=== PATIENT | male | born 1960 | race Caucasian/White ===

== ENCOUNTER → 2018-05-11 | Outpatient (CLI) | payer BC ==
--- NOTE | 2018-05-11 14:24 | MR ---
EXAMINATION TYPE: MR shoulder RT wo con DATE OF EXAM: 05/11/2018 COMPARISON: 02/11/2016 HISTORY: 57-year-old male Right shoulder pain TECHNIQUE: Multiplanar, multisequence imaging of the right shoulder is performed without contrast. FINDINGS: Intracapsular portion of the long head biceps tendon not clearly identified, possibly torn and scarre d down in the bicipital groove. Diffuse heterogeneous signal the subscapularis tendon with some partial articular sided tearing throu ghout. Suspect more significant tearing of the inferior third fibrous as the tendon appears very line ar, refer to sagittal image 17. Severe degenerative changes at the AC joint with joint effusion bulky inferior spurring impinging ont o the underlying cuff. There is a focal full-thickness defect of the anterior to mid supraspinatus te ndon proximal to the footprint, located below the level of the acromion measuring 6 x 6 mm. In additi on, there is marked thinning of the entire supraspinatus tendon insertion extending to the anterior f irst and eighth tendon measuring 2.7 cm AP and 2.1 cm long. The remaining infraspinatus tendon is markedly heterogeneous and show some fluid demyelinating along the myotendinous junction probably due to combination of intrasubstance and articular sided tearing. Mild fatty infiltration of the wall of the rotator cuff muscle bellies. There is some superior subluxation of the glenoid humeral joint and evidence of lateral single row pi nning for prior supraspinatus tendon repair. Diffusely degenerative glenoid labrum with small joint effusion. Glenohumeral joint shows thinning of articular cartilage along the inferior humeral head. No Hill-Sachs deformity or os acromiale. No suspicious bone marrow replacement. IMPRESSION: 1. There is some superior subluxation of the humeral head suggesting underlying glenohumeral joint in stability. Underlying mild glenohumeral joint OA. Diffusely degenerated labrum. 2. Evidence of prior supraspinatus tendon repair with a laterally positioned single row suture anchor . The entire supraspinatus tendon is severely thinned and probably torn and scarred down. This abnorm al thinning extends into the anterior infraspinatus tendon. 3. There is a 6 x 6 mm full-thickness defect of the mid supraspinatus tendon located proximal to the insertion (below the level of the acromion). 4. Fluid delaminating along the infraspinatus myotendinous junction suggesting partial articular side d tear of the infraspinatus tendon. 5. Partial tearing of the subscapularis tendon, especially involving the inferior third fibers. The m ajority appears intact. 6. There is mild fatty infiltration diffusely of the rotator cuff muscles. 7. Severe degenerative changes at the AC joint with prominent inferior spurring likely contributing t o impingement. 8. Unable to identify the intracapsular portion of the long head biceps tendon which may be torn and scarred down in the bicipital groove.
== END | disposition home or self-care (01) ==
LOC: RADMRIMAIN 07:07
PROVIDERS: ATTEND Orthopaedic Surgery
DX: S46.911A Strain of unspecified muscle, fascia and tendon at shoulder and upper arm level, right arm, initial encounter (principal); M19.011 Primary osteoarthritis, right shoulder; M67.813 Other specified disorders of tendon, right shoulder

== ENCOUNTER 2018-08-22 11:36 | Day surgery (SDC) | payer BC ==
[2018-08-17 12:43] VITALS: BMI 44.9
[~2018-08-22 11:36] MED LIST: LACTATED RINGERS 1,000 ML IV SCH
[2018-08-22 12:10] VITALS: RESP 16; TEMP 96.3
[2018-08-22] MEDS ORDERED: LIDOCAINE 1% 20 ML VIAL (10MG/ML) FOR IV START INTRADERMA ONE (12:16)
[2018-08-22] MEDS ORDERED: LIDOCAINE 1% INJ 10MG/ML (20 ML MDV) ONE (13:00)
[2018-08-22] MEDS ORDERED: PROPOFOL 10 MG/ML 20 ML VIAL IV ONE (13:00)
--- NOTE | 2018-08-22 13:31 | P.PCN ---
Date of Procedure: 08/22/18 Procedure(s) Performed: Procedure: Total colonoscopy. Preoperative diagnosis: Screening for neoplasia, patient has history of polyps. Postoperative diagnosis: Exam within normal limits. Preparation: HalfLytely prep. Sedation: Was provided by anesthesia. Brief clinical history: The patient is a 58-year-old male who is scheduled for this evaluation because of history of polyps. His last exam was around 5 years ago. The patient has no abdominal complaints, bleeding or anemia. Procedure: With the patient on his left lateral decubitus position and after informed consent and adequate sedation, the perianal area was inspected and it did not show any fissures or fistulas. There were no masses felt on digital rectal examination. The Olympus CFH 190L video colonoscope was then inserted in the rectum in the usual fashion and advanced to the cecum. The mucosa appeared healthy. No polyps or tumors were seen or any obvious diverticular disease or other pathology. I retroflexed the endoscope in the rectum before the endoscope was withdrawn. The patient tolerated the procedure well. Plan: The patient was reassured. He will follow up with you as planned and I recommended repeat exam in 5 years.
[2018-08-22 13:52] VITALS: BP 138/84; PULSE 50
== END 2018-08-22 14:02 | disposition home or self-care (01) ==
LOC: ORWHC2ENDO 11:36
DX: Z12.11 Encounter for screening for malignant neoplasm of colon (principal); Z86.010 Personal history of colon polyps; K21.9 Gastro-esophageal reflux disease without esophagitis; I10 Essential (primary) hypertension; E78.5 Hyperlipidemia, unspecified; G47.33 Obstructive sleep apnea (adult) (pediatric); M19.90 Unspecified osteoarthritis, unspecified site; Z88.1 Allergy status to other antibiotic agents; Z88.2 Allergy status to sulfonamides; F32.9 Major depressive disorder, single episode, unspecified; Z79.899 Other long term (current) drug therapy; Z79.82 Long term (current) use of aspirin
CPT/HCPCS: J2001; J2704; G0105; 45378

== ENCOUNTER → 2019-04-15 | Outpatient (CLI) | payer BC ==
--- NOTE | 2019-04-16 04:56 | MR ---
EXAMINATION TYPE: MR hip LT wo con DATE OF EXAM: 04/15/2019 COMPARISON: None HISTORY: Left hip pain Multiplanar multiecho imaging of the pelvis and left hip was performed without contrast. FINDINGS: There is metal artifact from right hip surgery. The proximal left femur appears intact. There is no e vidence of avascular necrosis. Acetabulum is intact. There is no significant hip joint effusion. Ther e is no evidence of a soft tissue mass. Bladder distends smoothly. I see no focal bone destruction. IMPRESSION: Negative MR scan of the left hip joint.
== END | disposition home or self-care (01) ==
LOC: RADMRIMAIN 12:54
PROVIDERS: ATTEND Family Medicine
DX: M25.552 Pain in left hip (principal)

== ENCOUNTER → 2019-10-26 | Outpatient (CLI) | payer BC ==
--- NOTE | 2019-10-26 09:56 | XR ---
EXAMINATION TYPE: XR orbit detect foreign body DATE OF EXAM: 10/26/2019 COMPARISON: NONE HISTORY: Possible foreign body TECHNIQUE: 3 views submitted FINDINGS: Osseous structures intact. No metallic foreign body identified. IMPRESSION: No metallic foreign body
== END | disposition home or self-care (01) ==
LOC: RADXRMAIN 09:06
PROVIDERS: ATTEND Nurse Practitioner
DX: Z01.818 Encounter for other preprocedural examination (principal); Z87.821 Personal history of retained foreign body fully removed
CPT/HCPCS: 70030

== ENCOUNTER → 2021-04-14 | Outpatient (CLI) | payer BC ==
--- NOTE | 2021-04-14 10:08 | CT ---
EXAMINATION TYPE: CT iac w con DATE OF EXAM: 04/14/2021 COMPARISON: None HISTORY: tinnitus CT DLP: 142.7 mGycm Automated exposure control for dose reduction was used. CONTRAST: CT scan of the IACs is performed with IV Contrast, patient injected with 100 mL of Isovue 300. FINDINGS: The external auditory canals are patent bilaterally. Wax debris is seen within the external auditory canals right greater than left. Mastoid air cells show no evidence of abnormal opacificati on bilaterally. The middle ear ossicles are symmetric and unremarkable. There is no evidence of yodit picious surrounding soft tissue density to suggest cholesteatoma. The scutum is preserved bilaterall y. The cochlea and the semicircular canals are symmetric and unremarkable. Vestibular aqueduct and internal carotid canal appear unremarkable. Temporomandibular joints are maintained bilaterally. IMPRESSION: No significant abnormality seen to account for patient's symptoms.
== END | disposition home or self-care (01) ==
LOC: RADCTMAIN 08:55
PROVIDERS: ATTEND Otolaryngology
DX: H93.19 Tinnitus, unspecified ear (principal)
CPT/HCPCS: 70481; Q9967

== ENCOUNTER → 2023-01-07 | Outpatient (CLI) | payer BC ==
--- NOTE | 2023-01-07 14:52 | US ---
EXAMINATION TYPE: US venous doppler duplex LE RT DATE OF EXAM: 01/07/2023 2:15 PM COMPARISON: NONE CLINICAL INDICATION: Male, 62 years old with history of R60.0 EDEMA M85.561 PAIN IN RIGHT KNEE; Patie nt hurt right knee on Wednesday. Swelling. Patient takes baby aspirin daily. No hx of DVT. SIDE PERFORMED: Right TECHNIQUE: The lower extremity deep venous system is examined utilizing real time linear array sonog pascual with graded compression, doppler sonography and color-flow sonography. VESSELS IMAGED: Common Femoral Vein Deep Femoral Vein Greater Saphenous Vein * Femoral Vein Popliteal Vein Small Saphenous Vein * Proximal Calf Veins (* superficial vessels) Right Leg: No evidence of DVT. Cyst within the posterior right knee: 4.7 x 3.5 x 2.1 cm. IMPRESSION: 1. No evidence for deep venous thrombosis of the right lower extremity. 2. Popliteal fossa 4.7 cm cyst.
== END | disposition home or self-care (01) ==
LOC: RADUSWWP 13:38
PROVIDERS: ATTEND Family Medicine
DX: M71.21 Synovial cyst of popliteal space [Baker], right knee (principal); R60.0 Localized edema

== ENCOUNTER → 2023-02-02 | Outpatient (CLI) | payer BC ==
--- NOTE | 2023-02-05 06:26 | MR ---
EXAMINATION TYPE: MR knee RT wo con DATE OF EXAM: 02/02/2023 COMPARISON: NONE HISTORY: Right knee pain, pain behind knee, locking, and swelling for 6 weeks. TECHNIQUE: Multiplanar, multisequence images of the knee is performed without IV contrast. FINDINGS: MEDIAL MENISCUS: Irregular oblique signal posterior horn extending to inferior articular surface. LATERAL MENISCUS: Anterior and posterior horns are intact without tear. CRUCIATE LIGAMENTS: The anterior and posterior cruciate ligaments are intact and unremarkable. COLLATERAL LIGAMENTS: The medial collateral ligament and lateral collateral ligament complex are inta ct and unremarkable. EXTENSOR MECHANISM: Visualized quadriceps and patellar tendons are intact. EFFUSION: Small to moderate size suprapatellar joint effusion. POPLITEAL CYST: Large multiseptated popliteal/cotton cyst. TRICOMPARTMENT SPACES: Tricompartment joint space loss which is most prominent and [id number] patellofemoral compartment. Mild to moderate tricompartment joint space narrowing. CARTILAGE: Chondromalacia patella with areas of full-thickness cartilaginous loss along the posterior patellar pole. BONE MARROW SIGNAL: No focal abnormal marrow signal is appreciated. OTHER: Mild to moderate diffuse subcutaneous edema greatest anteriorly. IMPRESSION: 1. Oblique full-thickness tear posterior horn medial meniscus. 2. Tricompartment degenerative changes that are most prominent and moderate to advanced patellofemora l compartment as detailed above. 3. Small to moderate-sized joint effusion. 4. Large multiseptated popliteal cyst.
== END | disposition home or self-care (01) ==
LOC: RADMRIMAIN 19:40
PROVIDERS: ATTEND Family Medicine
DX: M17.11 Unilateral primary osteoarthritis, right knee (principal); M23.321 Other meniscus derangements, posterior horn of medial meniscus, right knee; M25.461 Effusion, right knee; M71.21 Synovial cyst of popliteal space [Baker], right knee

== ENCOUNTER 2023-08-10 08:40 | Day surgery (SDC) | payer BC ==
[~2023-08-10 08:40] MED LIST changes: -LACTATED RINGERS 1,000 ML IV SCH; +SODIUM CHLORIDE 0.9% 1,000 ML IV SCH
[2023-08-10] MEDS ORDERED: BENZOCAINE SPRAY 1 CAN TOPICAL STA (09:00)
[2023-08-10 09:18] VITALS: TEMP 97
[2023-08-10] MEDS: SODIUM CHLORIDE 0.9% 500 ML BAG IV STA (09:28)
[2023-08-10] MEDS: IV FLUID CONTINUATION 500 ML IV ONE (09:28)
[2023-08-10 09:36] LABS: African American GFR (CKD) >90 (>60 ml/min/1.73 sqM); Anion Gap 4 mmol/L; Blood Urea Nitrogen 20 mg/dL (9-20); Calcium 8.9 mg/dL (8.4-10.2); Carbon Dioxide 31 mmol/L (22-30); Chloride 102 mmol/L (98-107); Glucose 86 mg/dL (74-99); Non-African American GFR(CKD) >90 (>60 ml/min/1.73 sqM); Sodium 137 mmol/L (137-145)
[2023-08-10 09:55] LABS: Potassium 4.7 mmol/L (3.5-5.1)
[2023-08-10] MEDS ORDERED: LIDOCAINE 1% INJ 10MG/ML (20 ML MDV) ONE (10:00)
[2023-08-10] MEDS ORDERED: PROPOFOL 10 MG/ML 20 ML VIAL IV ONE (10:00)
[2023-08-10] MEDS: BENZOCAINE SPRAY 1 CAN TOPICAL ONE (10:06)
[2023-08-10] MEDS ORDERED: SODIUM CHLORIDE 0.9% 1,000 ML IV SCH (10:30)
--- NOTE | 2023-08-10 11:10 | ECHOT ---
TRANSESOPHAGEAL ECHOCARDIOGRAM INDICATION: Symptomatic persistent atrial fibrillation. PROCEDURE NOTE: After obtaining informed consent, transesophageal echocardiogram was performed in left lateral position using an Omniplane probe. Local and IV sedation were obtained by the program instructor. FINDINGS: 1. There is no intracardiac thrombus within the left atrial appendage, left atrium, right atrium, or right ventricle. 2. There is severe biatrial enlargement. 3. There is moderate central mitral regurgitation noted. 4. There is mild tricuspid regurgitation noted. Aortic valve is free of stenosis or regurgitation. 5. Aortic root measures within normal limits. 6. There is no evidence of rhyr-ni-wgotl shunt by color-flow Doppler or zlbbv-vw-ijvi shunt by agitated saline contrast study. There is diffuse global hypokinesis with mild LV systolic dysfunction with an ejection fraction 45% to 50%. Spontaneous echo contrast is noted. CONCLUSIONS: No intracardiac thrombus within the left atrial appendage. PLAN: The patient is adequately anticoagulated with Eliquis. We will proceed with cardioversion. MMODL / IJN: [id number] /
--- NOTE | 2023-08-10 11:40 | PCN ---
PROCEDURE NOTE CARDIOVERSION NOTE: After obtaining informed consent, electrical cardioversion was performed using 150 joules of synchronized DC current. He converted to sinus rhythm following a single shock and remains in sinus rhythm. I am going to cut back on the dose of metoprolol to 25 mg b.i.d. and discharge and cut back on the flecainide to 100 mg b.i.d. and that JOSELIN exam stated that there is a small pericardial effusion noted. MMODL / IJN: [id number] /
[2023-08-10 11:59] VITALS: BP 121/73; PULSE 56; RESP 16
== END 2023-08-10 11:06 | disposition home or self-care (01) ==
LOC: OR 08:40
PROVIDERS: ATTEND Internal Medicine Cardiovascular Disease
DX: I48.19 Other persistent atrial fibrillation (principal); Z79.01 Long term (current) use of anticoagulants; Z79.899 Other long term (current) drug therapy
CPT/HCPCS: 93312; 93320; 93325; 92960; 80048; J2001; J2704

== ENCOUNTER 2023-09-17 12:17 | Inpatient (IN) | payer BC ==
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
[2023-09-17] MEDS: LORazepam 2 MG/ML INJ IV STA ×2 (13:06→20:36)
[2023-09-17 13:12] LABS: Basophils % (A) 1 %; Eosinophils # (A) 0.1 k/uL (0-0.7); Eosinophils % (A) 2 %; HCT 46.7 % (39.0-53.0); HGB 15.1 gm/dL (13.0-17.5); Lymphocytes # (A) 1.6 k/uL (1.0-4.8); Lymphocytes % (A) 24 %; MCH 31.9 pg (25.0-35.0); MCHC 32.4 g/dL (31.0-37.0); MCV 98.5 fL (80.0-100.0); Monocytes # (A) 0.3 k/uL (0-1.0); Monocytes % (A) 5 %; Neutrophils # (A) 4.3 k/uL (1.3-7.7); Neutrophils % (A) 67 %; Platelet Count 200 k/uL (150-450); RBC 4.74 m/uL (4.30-5.90); RDW 12.5 % (11.5-15.5); WBC 6.5 k/uL (3.8-10.6)
[2023-09-17 13:24] LABS: ALT 17 U/L (4-49); AST 26 U/L (17-59); African American GFR (CKD) >90 (>60 ml/min/1.73 sqM); Albumin 4.6 g/dL (3.5-5.0); Alkaline Phosphatase 59 U/L (38-126); Anion Gap 6 mmol/L; Blood Urea Nitrogen 15 mg/dL (9-20); Calcium 9.3 mg/dL (8.4-10.2); Carbon Dioxide 30 mmol/L (22-30); Chloride 102 mmol/L (98-107); Creatine Kinase 42 U/L (55-170); Glucose 107 mg/dL (74-99); Non-African American GFR(CKD) >90 (>60 ml/min/1.73 sqM); Potassium 4.4 mmol/L (3.5-5.1); Sodium 138 mmol/L (137-145); Total Bilirubin 0.6 mg/dL (0.2-1.3); Total Protein 6.9 g/dL (6.3-8.2)
[2023-09-17 13:28] LABS: Partial Thromboplastin Time 26.6 sec (22.0-30.0); Prothrombin Time 10.6 sec (10.0-12.5)
--- NOTE | 2023-09-17 14:38 | CT ---
EXAMINATION TYPE: CT angio head neck DATE OF EXAM: 09/17/2023 HISTORY: pt sent by eye dr for poss stroke behind left eye. COMPARISON: FINDINGS: The brachiocephalic origins are widely patent and no significant stenosis. There is no significant stenosis of the common or internal carotid arteries within the neck. There is minimal calcified plaque in the carotid bifurcations. There is no stenosis of the vertebral arteries . Intracranially, there is no stenosis, segmental occlusion, sizable aneurysm sac or vascular malformat ion. IMPRESSION:. 1. Minimal plaque in the carotid bifurcations but no significant stenosis. 2. No evidence of occlusive disease, aneurysms or vascular malformation intracranially. NASCET criteria was used in interpretation of this exam?
--- NOTE | 2023-09-17 14:40 | CT ---
EXAMINATION TYPE: CT brain wo con DATE OF EXAM: 09/17/2023 COMPARISON: None HISTORY: Possible CVA Findings: The ventricles, basal cisterns and sulci over the convexities are within normal limits and there is n o mass effect or shift of midline structures. There is mild decreased density in periventricular white matter consistent with mild chronic ischemic white matter demyelination. There is no acute intra-axial or extra-axial hemorrhage. The posterior fossa including the brainstem, fourth ventricle and cerebellar pontine angles appear no rmal. Intraorbital contents appear normal and symmetric. Visualized paranasal sinuses and mastoid air cells are well aerated. The calvarium is intact. IMPRESSION: 1. No acute bleed or mass effect. 2. Mild senescent changes
[2023-09-17] MEDS: ASPIRIN 325 MG TAB PO STA (16:49)
[2023-09-17 18:33] LABS: Erythrocyte Sedimentation Rate 24 mm/Hr (0-20)
--- NOTE | 2023-09-17 19:28 | P.CNNES ---
History of Present Illness Consult date: 09/17/23 Requesting physician: Luc Monroy Reason for Consult: Branch retinal artery occlusion History of Present Illness: Patient is a 63-year-old right-handed male with history of hypertension, atrial fibrillation, came to the hospital today at 12:17 PM, referred by information resources manager for stroke workup. Patient states that he developed visual disturbance last 09/13/2019 4 in the morning while he was at work. He started seeing floaters, squiggly lines, spots around his whole visual field. He did not seek medical attention at that time. There were no other associated focal symptoms like slurred speech facial droop or any numbness tingling or weakness. Patient states that he does have history of chronic headaches "all his life" as mentioned below in detail. The headache has been getting worse in the last couple weeks. He saw the housekeeping lead yesterday, who recommended to see an information resources manager. 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 Patient has history of chronic daily headaches all his life. Patient states he remembers having headaches even when he was a child. It involves behind the eyes or on the temples, 1 or other side or sometimes back of the head. At times it may go up to 10/10. The headache is throbbing, with aching with no headache free day in the month. The headaches rates between 4-10, and it goes up to 10/10 about 3-4 times a week. He gets nausea sometimes but no vomiting. Denies any light or noise sensitivity. He has never been diagnosed with migraines. Denies family history of migraines. He denies excessive use of caffeine, only about 1 or 2 cups/day. He did switch to decaffeinated drinks, for quite some time, but did not help. Vital signs on arrival blood pressure 200/112, which came down to 193/129 and then 193/129 again. Pulse rate 78 temperature 97.3. Blood test shows normal CBC PTT and INR, normal CMP. CK is 42. EKG showed uncertain regular rhythm. Left axis deviation. CT head showed no acute bleed or mass effect. Mild senescent changes. I personally reviewed CT head, agree with the findings. Patient has history of hypertension, denies diabetes. He has never smoked, does not drink alcohol. Denies any history of strokes or TIA or any coronary artery disease. Patient has been diagnosed with atrial fibrillation. He used to be on aspirin 81 mg, but 3 months ago he was switched to Eliquis 5 mg twice daily. Patient was on metoprolol, and he was having breathing difficulty. 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 Lately his blood pressure has been running high. As per notes from ophthalmology, patient has "blotchy vision" constantly. Floaters are getting worse. Patient's visual acuity is 20/20 right eye, 20/200 left eye. Patient has branch retinal artery occlusion left eye with hypertensive retinopathy OS. He recommended blood pressure and cholesterol control. Patient also has retinal defect, old retinal tear both eyes. Stable. Review of Systems Constitutional: Reports chronic headaches, Reports weight gain, Denies chills, Denies fever Eyes: left blurred vision, left loss of peripheral vision, denies diplopia Ears: deny: decreased hearing, ear discharge Ears, nose, mouth and throat: Reports headache (4-5), Denies sore throat, Denies vertigo Cardiovascular: Denies chest pain, Denies shortness of breath Respiratory: Reports cough (in am ), Denies excessive sputum Gastrointestinal: Denies abdominal pain, Denies diarrhea, Denies nausea, Denies vomiting Genitourinary: Denies dysuria, Denies incontinence Musculoskeletal: Reports neck pain, Denies low back pain Integumentary: Denies pruritus, Denies rash Neurological: Reports as per HPI Psychiatric: Reports anxiety, Reports depression Endocrine: Reports fatigue, Reports weight change Hematologic/Lymphatic: Denies easy bleeding, Denies easy bruising Past Medical History Past Medical History: Atrial Fibrillation, GERD/Reflux, Hyperlipidemia, Hypertension, Osteoarthritis (OA), Prostate Disorder, Sleep Apnea/CPAP/BIPAP Additional Past Medical History / Comment(s): CHRONIC PALPITATIONS (PATIENT HAS BEEN TO SEVERAL CARDIOLOGISTS TO GET ANSWERS, OCC PVCs ONLY. USES CPAP. History of Any Multi-Drug Resistant Organisms: None Reported Past Surgical History: Joint Replacement, Orthopedic Surgery Additional Past Surgical History / Comment(s): ORIF RIGHT CLAVICLE. RIGHT HIP /REMOVAL OF BONE FRAGMENTS. RIGHT TOTAL HIP. LASIK SHUBHAM. SINUS. RIGHT THUMB REATTACHED FROM ACCIDENT. LEFT/RT SHOULDER REPAIR. COLONOSCOPY rt elbow shattered after accident repaired Past Anesthesia/Blood Transfusion Reactions: Postoperative Nausea & Vomiting (PONV) Additional Past Anesthesia/Blood Transfusion Reaction / Comment(s): hx of n/v no issues lately Past Psychological History: Anxiety, Depression Smoking Status: Never smoker Past Alcohol Use History: None Reported Past Drug Use History: None Reported - Past Family History Mother Family Medical History: Deep Vein Thrombosis (DVT) Medications and Allergies Home Medications Medication Instructions Recorded Confirmed Type Omeprazole 20 mg PO DAILY 02/27/16 09/17/23 History Apixaban [Eliquis] 5 mg PO BID 07/21/23 09/17/23 History Buprenorphine [Buprenorphine 20 1 patch TRANSDERM TU 07/21/23 09/17/23 History MCG/HR] Cyclobenzaprine [Flexeril] 10 mg PO HS 07/21/23 09/17/23 History DULoxetine HCL [Cymbalta] 30 mg PO DAILY 07/21/23 09/17/23 History Dutasteride 0.5 mg PO DAILY 07/21/23 09/17/23 History HYDROcodone/APAP 7.5-325MG [Gower 1 tab PO TID PRN 07/21/23 09/17/23 History 7.5-325] Rosuvastatin [Crestor] 20 mg PO HS 07/21/23 09/17/23 History Flecainide Acetate [Tambocor] 100 mg PO Q12H 09/17/23 09/17/23 History Flecainide [Tambocor] 50 mg PO Q12H 09/17/23 09/17/23 History Testosterone [Androgel 1.62%] 3 pump TRANSDERM DAILY 09/17/23 09/17/23 History Allergies Allergy/AdvReac Type Severity Reaction Status Date / Time cephalexin [From Keflex] Allergy Rash/Hives Verified 09/17/23 14:23 clarithromycin [From Biaxin] Allergy Rash/Hives Verified 09/17/23 14:23 Physical Examination - Vital Signs Vital Signs: Vital Signs Temp Pulse Resp BP Pulse Ox 09/17/23 16:30 66 16 154/90 92 L 09/17/23 16:15 66 9 L 158/110 92 L 09/17/23 16:00 68 12 158/94 98 09/17/23 15:45 69 12 163/106 98 09/17/23 15:30 67 14 158/102 98 09/17/23 15:15 69 16 164/101 97 09/17/23 15:00 70 11 L 145/83 98 09/17/23 14:45 72 14 142/83 09/17/23 14:30 69 13 148/87 97 09/17/23 14:15 73 16 159/99 91 L 09/17/23 14:00 70 15 158/101 96 09/17/23 13:45 73 18 148/92 96 09/17/23 13:30 76 12 159/99 99 09/17/23 13:15 76 12 185/107 98 09/17/23 13:00 75 22 193/129 99 09/17/23 12:35 78 20 193/129 97 09/17/23 12:19 97.3 F L 78 20 200/112 98 Intake and Output 09/17/23 09/17/23 09/17/23 06:59 14:59 22:59 Other: Weight 136.078 kg Patient is an elderly male, very pleasant, in no acute distress. Patient is alert awake oriented to time place and person. Speech and language functions are normal. Patient can name and repeat very well. No aphasia or dysarthria. Attention, concentration and fund of knowledge is adequate. On cranial nerve examination, pupils are equal, round and reacting to light, visual doran are full on confrontation, with no neglect on double simultaneous stimulation. I check detailed visual doran on confrontation on each eye, and was normal. His extraocular muscles are intact with no nystagmus. Face is symmetric, tongue protrudes to the midline. Palatal elevation and sensation normal, hearing and shoulder shrug normal, facial sensation normal. On muscle strength testing, there is no pronator drift and the strength is normal in arms and legs distally and proximally, except right hip flexion which is slightly weak 5-related to his previous hip replacement. Deep tendon reflexes are symmetric hypoactive, trace to 1 and plantars are flat. Sensory to touch is equal with no neglect on double simultaneous stimulation. Cerebellar function showed no ataxia for [id number] testing. No dysdiadochokinesia. No ataxia for [id number] testing on either side. Tone and bulk of muscles normal. Gait deferred.. On general examination, there is no carotid bruit or murmur, S1-S2 audible. Chest is clear on consultation. Abdomen is soft nontender. No organomegaly, bowel sounds present. Peripheral pulses are present. No peripheral edema. Results - Laboratory Findings CBC and BMP: 09/17/23 12:51 09/17/23 12:51 Abnormal Lab Findings: Abnormal Labs 09/17/23 12:51 Glucose 107 H Creatine Kinase 42 L Assessment and Plan Assessment: * Branch retinal artery occlusion involving left eye * Uncontrolled hypertension * Atrial fibrillation, on Eliquis * Chronic daily headaches, lifelong * Hyperlipidemia * History of B12 deficiency, not on replacement Plan: * Patient has presented with branch retinal artery occlusion. * Director Of Market Research has recommended stroke/TIA workup. * 2-D echo with bubble study to rule out PFO. Patient states he had 2D echo performed 1 to 2 months ago at his cardiology office. 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 * CTA head and neck showed: Minimal plaque in the carotid bifurcations, but no significant stenosis. No evidence of occlusive disease, aneurysms or vascular malformation intracranially. * ESR slightly elevated at 24, CRP pending. Consider temporal artery biopsy because of worsening headaches, especially if CRP is elevated. * Fasting a.m. lipid panel * Hemoglobin A1c * B12, folate * Optimize control of blood pressure. Patient has been off blood pressure medication for last 2 to 3 weeks. * Continue Eliquis 5 mg twice daily. Patient started on aspirin 325 mg for now. Consider switching to aspirin 81 mg. * Neuro checks every 4 hours. * Telemetry monitoring rule out any arrhythmia * DVT prophylaxis: On Eliquis * Dr. Rios will cover neurology service over the weekend. Thank you for the consult.
[2023-09-17 19:48] LABS: C Reactive Protein <0.5 mg/dL (<1.0)
[2023-09-17] MEDS: FLECAINIDE 50 MG TAB PO SCH (20:34)
[2023-09-17] MEDS: APIXABAN 5 MG TAB PO SCH (20:34)
[2023-09-17] MEDS: ATORVASTATIN 40 MG TAB PO SCH (20:35)
[2023-09-17] MEDS ORDERED: FLECAINIDE 50 MG TAB PO SCH ×2 (21:00)
--- NOTE | 2023-09-17 22:44 | P.HPIM ---
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 Patient states that he had change in vision about 6 days ago. States that he is seeing floaters, lights and spots around his whole visual field. Patient was seen by neurosurgeon followed by [employer] and was sent to ER for further stroke evaluation. Patient does have history of atrial fibrillation on anticoagulation with Eliquis. Apparently his blood pressure has been running high for the past 1 week. Patient otherwise denies any complaints of slurred speech or facial droop. Denies any extremity weakness. Patient was seen by [employer] and diagnosed with retinal branch arterial occlusion. EKG on admission showed uncertain regular rhythm. Left axis deviation. CT angio of the head and neck minimal plaque in the carotid bifurcations but no significant stenosis. No evidence of occlusive disease, aneurysms are vascular malformation intracranially. CT head showed no acute bleed or mass effect. MildSenescent changes. Laboratory data showed WBC 6.5 hemoglobin 15.1 and platelets 200 Sodium 138 potassium 4.4 chloride 102 bicarb is 30 BUN 15 and creatinine 0.73 and blood glucose 107 CK 42 Lodine SR not elevated CRP less than 0.5 B12 and folate within normal limits. Review of Systems Constitutional: Patient denies any fever or chills . No generalized weakness or weight loss. Abdomen: Patient denied nausea vomiting and diarrhea and abdominal pain. Cardiovascular: Patient denies any chest pain or short of breath no palpitations. Respiratory: patient denied any cough or sputum production. No shortness of breath Neurologic: Patient denied any numbness or tingling. Chronic headache. Left eye floaters and visual changes. Musculoskeletal: Patient denies any complaints of joint swelling or deformity. Skin: Negative Psychiatric: Negative Endocrine: No heat or cold intolerance. No recent weight gain. Genitourinary: No dysuria or hematuria. All other 14 point ROS negative except the above Past Medical History Past Medical History: Atrial Fibrillation, GERD/Reflux, Hyperlipidemia, Hypertension, Osteoarthritis (OA), Prostate Disorder, Sleep Apnea/CPAP/BIPAP Additional Past Medical History / Comment(s): CHRONIC PALPITATIONS (PATIENT HAS BEEN TO SEVERAL CARDIOLOGISTS TO GET ANSWERS, OCC PVCs ONLY. USES CPAP. History of Any Multi-Drug Resistant Organisms: None Reported Past Surgical History: Joint Replacement, Orthopedic Surgery Additional Past Surgical History / Comment(s): ORIF RIGHT CLAVICLE. RIGHT HIP/REMOVAL OF BONE FRAGMENTS. RIGHT TOTAL HIP. LASIK SHUBHAM. SINUS. RIGHT THUMB REATTACHED FROM ACCIDENT. LEFT/RT SHOULDER REPAIR. COLONOSCOPY rt elbow shattered after accident repaired Past Anesthesia/Blood Transfusion Reactions: Postoperative Nausea & Vomiting (PONV) Additional Past Anesthesia/Blood Transfusion Reaction / Comment(s): hx of n/v no issues lately Past Psychological History: Anxiety, Depression Smoking Status: Never smoker Past Alcohol Use History: None Reported Past Drug Use History: None Reported - Past Family History Mother Family Medical History: Deep Vein Thrombosis (DVT) Medications and Allergies Home Medications Medication Instructions Recorded Confirmed Type Omeprazole 20 mg PO DAILY 02/27/16 09/17/23 History Apixaban [Eliquis] 5 mg PO BID 07/21/23 09/17/23 History Buprenorphine [Buprenorphine 20 1 patch TRANSDERM TU 07/21/23 09/17/23 History MCG/HR] Cyclobenzaprine [Flexeril] 10 mg PO HS 07/21/23 09/17/23 History DULoxetine HCL [Cymbalta] 30 mg PO DAILY 07/21/23 09/17/23 History Dutasteride 0.5 mg PO DAILY 07/21/23 09/17/23 History HYDROcodone/APAP 7.5-325MG [Mikana 1 tab PO TID PRN 07/21/23 09/17/23 History 7.5-325] Rosuvastatin [Crestor] 20 mg PO HS 07/21/23 09/17/23 History Flecainide Acetate [Tambocor] 100 mg PO Q12H 09/17/23 09/17/23 History Flecainide [Tambocor] 50 mg PO Q12H 09/17/23 09/17/23 History Testosterone [Androgel 1.62%] 3 pump TRANSDERM DAILY 09/17/23 09/17/23 History Allergies Allergy/AdvReac Type Severity Reaction Status Date / Time cephalexin [From Keflex] Allergy Rash/Hives Verified 09/17/23 14:23 clarithromycin [From Biaxin] Allergy Rash/Hives Verified 09/17/23 14:23 Physical Exam Vitals: Vital Signs Temp Pulse Resp BP Pulse Ox 09/17/23 22:00 63 18 153/105 95 09/17/23 21:00 68 16 150/90 95 09/17/23 19:43 63 16 142/97 97 09/17/23 18:15 66 12 144/87 98 09/17/23 18:00 65 16 156/92 97 09/17/23 17:45 65 13 155/92 97 09/17/23 17:30 67 14 177/111 90 L 09/17/23 17:15 67 13 162/97 96 09/17/23 17:00 68 14 156/92 95 09/17/23 16:45 75 18 155/89 09/17/23 16:30 66 16 154/90 92 L 09/17/23 16:15 66 9 L 158/110 92 L 09/17/23 16:00 68 12 158/94 98 09/17/23 15:45 69 12 163/106 98 09/17/23 15:30 67 14 158/102 98 09/17/23 15:15 69 16 164/101 97 09/17/23 15:00 70 11 L 145/83 98 09/17/23 14:45 72 14 142/83 09/17/23 14:30 69 13 148/87 97 09/17/23 14:15 73 16 159/99 91 L 09/17/23 14:00 70 15 158/101 96 09/17/23 13:45 73 18 148/92 96 09/17/23 13:30 76 12 159/99 99 09/17/23 13:15 76 12 185/107 98 09/17/23 13:00 75 22 193/129 99 09/17/23 12:35 78 20 193/129 97 09/17/23 12:19 97.3 F L 78 20 200/112 98 Intake and Output 09/17/23 09/17/23 09/17/23 06:59 14:59 22:59 Other: Weight 136.078 kg PHYSICAL EXAMINATION: Patient is lying in the bed comfortably, no acute distress, awake alert and oriented.. HEENT: Normocephalic. Neck is supple. Pupils reactive. Nostrils clear. Oral cavity is moist. Neck reveals no JVD, carotid bruits, or thyromegaly. CHEST EXAMINATION: Trachea is central. Symmetrical expansion. Lung doran clear to auscultation and percussion. CARDIAC: Normal S1, S2 with no gallops. No murmurs ABDOMEN: Soft. Bowel sounds normal. No organomegaly. No abdominal bruits. Extremities: reveal no edema. No clubbing or cyanosis Neurologically awake, alert, oriented x3 with well-coordinated movements. No gross focal deficits noted Skin: No rash or skin lesions. Psychiatric: Coperative. Nonsuicidal Musculoskeletal: No joint swelling or deformity. Normal range of motion. Results CBC & Chem 7: 09/17/23 12:51 09/18/23 06:44 Labs: Abnormal Lab Results - Last 24 Hours (Table) 09/17/23 09/17/23 Range/Units 12:51 12:51 ESR 24 H (0-20) mm/Hr Glucose 107 H (74-99) mg/dL Creatine Kinase 42 L (55-170) U/L Thrombosis Risk Factor Assmnt - DVT/VTE Prophylaxis DVT/VTE Prophylaxis: Pharmacologic Prophylaxis ordered Assessment and Plan Assessment: Acute left eye vision changes due to retinal artery branch occlusion. Patient has been symptoms for the past 6 days. Hypertensive emergency on admission Paroxysmal atrial fibrillation on anticoagulation with Eliquis History of JOSELIN and cardioversion on 08/10/2023 Hypertension Hyperlipidemia Obstructive sleep apnea on CPAP Osteoarthritis Anxiety/depression Morbid obesity BMI 41.7 DVT prophylax with heparin subcu Plan: Patient will be continued on telemonitoring. Continue with neurochecks every 4 hourly. Continue with anticoagulation with Eliquis and 2D echocardiogram with bubble study was ordered. Patient will be continued on flecainide. Currently not on any beta-blockers due to bradycardia as per patient. Patient was started on losartan 25 mg daily for better blood pressure control. ESR 24. CRP within normal limits. Follow-up A1c B12 and folate levels. Neurology and cardiology is on board. Follow-up closely. Time with Patient: Greater than 30
[2023-09-18] MEDS: PANTOPRAZOLE 40 MG TABLET PO SCH (06:33)
[2023-09-18 07:15] LABS: African American GFR (CKD) >90 (>60 ml/min/1.73 sqM); Anion Gap 2 mmol/L; Blood Urea Nitrogen 17 mg/dL (9-20); Carbon Dioxide 33 mmol/L (22-30); Chloride 103 mmol/L (98-107); Glucose 99 mg/dL (74-99); Non-African American GFR(CKD) >90 (>60 ml/min/1.73 sqM); Potassium 4.7 mmol/L (3.5-5.1); Sodium 138 mmol/L (137-145)
[2023-09-18] MEDS: DULoxetine HCL 30 MG CAPSULE.DR PO SCH (08:50)
[2023-09-18] MEDS: ASPIRIN 325 MG TAB PO SCH (08:50)
[2023-09-18] MEDS: LOSARTAN 25 MG TAB PO SCH (08:57)
[2023-09-18] MEDS: HYDROcodone/APAP 7.5-325MG 1 EACH TAB PO PRN (08:57)
[2023-09-18 09:36] LABS: Chol/HDL Ratio 2.86 Ratio; LDL Cholesterol,Calculated 59.7 mg/dL (0.0-131.0)
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
[2023-09-18] MEDS: LORazepam 2 MG/ML INJ IV STA (11:17)
--- NOTE | 2023-09-18 11:52 | P.PN ---
Subjective Progress Note Date: 09/18/23 The patient is a 63-year-old male who was seen in neurologic follow-up on September 18, 2023, in collaboration with Otilio Bernabe, via teleneurology. Patient's chart has been reviewed. This morning, he reports that his vision has improved. He does continue to have some loss of left lateral visual field. MRI of the brain is discussed with the patient. He has no further symptoms. His vision loss is improving. He reports that he is very claustrophobic and would require that he be "out" if the test was to be done. In addition to his visual symptoms, the patient reports chronic daily headaches, which she has had for years. He says they are not really increasing but are always present. On admission to the emergency department, the patient blood pressure was markedly elevated at 200/112. Laboratory evaluation reveals a sed rate of 24. Objective - Vital Signs Vital signs: Vital Signs Temp 97.5 F L 09/18/23 08:00 Pulse 72 09/18/23 08:00 Resp 18 09/18/23 08:00 BP 165/95 09/18/23 08:00 Pulse Ox 98 09/18/23 08:00 FiO2 Intake & Output 09/17/23 09/18/23 09/18/23 18:59 06:59 18:59 Intake Total 240 Balance 240 Weight 136.078 kg 143.2 kg Intake: Oral 240 Other: Voiding Method Toilet # Voids 1 - Exam General: The patient is reclining in the bed. He is well-nourished, well- developed and in no acute distress. HEENT: Head is atraumatic, normocephalic. Fundus not visualized. There is no scleral icterus. Mucous membranes are moist. Neurological examination Mental status: The patient is awake, alert and oriented x 3. His speech is clear. There is no dysarthria or aphasia. Cranial nerves: Pupils are equal at 3 mm and reactive. Visual field testing is intact. Extraocular movements are intact. There is no nystagmus. Facial sensation is intact. There is no facial asymmetry. Hearing is grossly intact. Uvula and palate are midline. Shoulder shrug symmetric. Tongue protrudes midline. 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 * Ui Ux Engineer has recommended stroke/TIA workup. * 2-D echo with bubble study to rule out PFO. Patient states he had 2D echo performed 1 to 2 months ago at his cardiology office. We will await wire bound box machine helper consultation, if repeat echo is indicated. * CTA head and neck showed: Minimal plaque in the carotid bifurcations, but no significant stenosis. No evidence of occlusive disease, aneurysms or vascular malformation intracranially. * ESR slightly elevated at 24, CRP 1.0. Temporal artery biopsy is not indicated in this case. Sed rate, to be considered elevated must be at least half the patient's age. * Fasting a.m. lipid panel-lipid panel is essentially normal * Hemoglobin [id number] * Recommend B12 replacement * Optimize control of blood pressure. Patient has been off blood pressure medication for last 2 to 3 weeks. * Continue Eliquis 5 mg twice daily. Would recommend adding aspirin 81 mg to the patient's Eliquis * Neuro checks every 4 hours. * Telemetry monitoring rule out any arrhythmia * DVT prophylaxis: On Eliquis * Once blood pressure control has been optimized, patient is neurologically stable for discharge Time with Patient: Greater than 30 (35 minutes were spent caring for this patient today including, obtaining history, examining the patient, reviewing imaging, chart documentation, labs, creating this note)
[2023-09-18] MEDS: LOSARTAN 25 MG TAB PO STA (12:07)
[2023-09-18] MEDS: MELATONIN 5 MG TABLET PO SCH (20:27)
[2023-09-18] MEDS: ALPRAZolam 0.5 MG TAB PO PRN (20:34)
[2023-09-18 20:56] VITALS: TEMP 98.4
[2023-09-19 07:55] LABS: African American GFR (CKD) >90 (>60 ml/min/1.73 sqM); Anion Gap 6 mmol/L; Blood Urea Nitrogen 16 mg/dL (9-20); Calcium 8.7 mg/dL (8.4-10.2); Carbon Dioxide 28 mmol/L (22-30); Chloride 102 mmol/L (98-107); Glucose 91 mg/dL (74-99); Non-African American GFR(CKD) >90 (>60 ml/min/1.73 sqM); Potassium 4.4 mmol/L (3.5-5.1); Sodium 136 mmol/L (137-145)
[2023-09-19] MEDS: LOSARTAN 50 MG TAB PO SCH (08:06)
[2023-09-19] MEDS: CYANOCOBALAMIN 500 MCG TAB PO SCH (08:06)
[2023-09-19 08:35] VITALS: BP 143/85; PULSE 71; RESP 18
--- NOTE | 2023-09-19 10:04 | P.PN ---
Subjective HISTORY OF PRESENT ILLNESS: This is a 63-year-old male with a past medical history significant for hypertension, hyperlipidemia, and atrial fibrillation. Patient follows in the office with Dr. Watts. We have been asked to see the patient in consultation for atrial fibrillation. Patient examined at the bedside. The patient was referred to the ER as he was seen by an cutter and presser yesterday and diagnosed with branch retinal arterial occlusion in the left eye. The patient was found to have extremely elevated blood pressures upon admission to the hospital with a reading of 200/112. His blood pressures have since improved with a recent reading of 139/79. He states he has been checking his blood pressure at home recently and readings have been in the 160s. He states he did not notify his saas architect or his primary care physician of his elevated blood pressures. The patient was recently taken off of metoprolol as he was bradycardic on an outpatient basis. The patient currently denies any chest pain or pressure. He denies any sh ortness of breath. He states that he continues to still see floaters this morning. DIAGNOSTICS: - EKG reveals sinus mechanism with right bundle branch block and first-degree AV block. - CT of the brain: Negative for acute process. Mild senescent changes - CT angio head and neck: Minimal plaque in the carotid bifurcations with no significant stenosis. No evidence of occlusive disease, aneurysm, or vascular malformation intracranially - Laboratory data: WBC 6.5. Hemoglobin 15.1. Platelet count 200. Sodium 138. Potassium 4.7. BUN 17. Creatinine 0.72. - Current home cardiac medications include rosuvastatin 20 mg at night, flecainide 150 mg twice a day, Eliquis 5 mg twice a day - Patient underwent JOSELIN and cardioversion on 08/10/[address] Watts - JOSELIN revealed no intracardiac thrombus, severe biatrial enlargement, moderate central mitral regurgitation, mild tricuspid regurgitation, and no evidence of left to right shunting by agitated saline study. There is diffuse global hypokinesis with mild LV dysfunction with an ejection fraction of 45 to 50%. 09/19/2023 Patient examined this morning at the bedside. Patient currently denies chest pain or pressure. He denies shortness of breath. Patient reports his vision is getting better. His blood pressures are also improved with a systolic in the 140s this morning. PHYSICAL EXAM: VITAL SIGNS: Reviewed. GENERAL: Well-developed in no acute distress. HEENT: Head is normocephalic. Pupils are equal, round. Sclerae anicteric. Mucous membranes of the mouth are moist. Neck supple. No JVD or thyromegaly LUNGS: Respirations even and unlabored. Lungs essentially clear to auscultation bilaterally. HEART: Regular rate and rhythm. S1 and S2 heard. ABDOMEN: Soft. Nondistended. Nontender. EXTREMITIES: Normal range of motion. No clubbing or cyanosis. Peripheral pulses intact. No lower extremity edema NEUROLOGIC: Awake and alert. Oriented x 3. 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 However will defer to neurology. Continue current dose of flecainide Losartan has been increased to 50 mg daily 2D echo ordered. However this may be completed on an outpatient basis if the patient is to be discharged home today. Patient does not require bubble study as he had a JOSELIN performed in August 2023 which did not reveal any evidence of PFO Patient may be discharged home today from a cardiac standpoint and follow-up in the office with Dr. Watts Further recommendations pending patient course Nurse practitioner note has been reviewed by physician. Signing provider agrees with the documented findings, assessment, and plan of care documented by VIRTUAL CLASSROOM MANAGER as a scribe. Objective - Vital Signs Vital signs: Vital Signs Temp 98.4 F 09/18/23 20:00 Pulse 71 09/19/23 08:00 Resp 18 09/19/23 08:00 BP 143/85 09/19/23 08:00 Pulse Ox 97 09/19/23 08:00 FiO2 Intake & Output 09/18/23 09/19/23 09/19/23 18:59 06:59 18:59 Intake Total 0 540 236 Output Total 0 Balance 0 540 236 Weight 144.7 kg Intake: Oral 0 540 236 Output: Gastric Drainage 0 Urine 0 Stool 0 Urine/Stool Mix 0 Emesis 0 Oral Regurgitation 0 Other 0 Other: Voiding Method Toilet # Voids 0 1 # Bowel Movements 0 - Labs CBC & Chem 7: 09/17/23 12:51 09/19/23 06:47 Labs: Abnormal Lab Results - Last 24 Hours (Table) 09/18/23 09/19/23 Range/Units 12:43 06:47 Sodium 136 L (137-145) mmol/L Cortisol 2.8 L (3.1-22.4) UG/DL
== END 2023-09-19 13:34 | disposition home or self-care (01) | DRG 125 ==
LOC: EC 12:17 → 3SCARD 15:38
PROVIDERS: ADMIT Internal Medicine; ATTEND Internal Medicine
DX: H34.231 Retinal artery branch occlusion, right eye (principal); Z68.41 Body mass index [BMI] 40.0-44.9, adult; I16.1 Hypertensive emergency; Z79.01 Long term (current) use of anticoagulants; E53.8 Deficiency of other specified B group vitamins; R51.9 Headache, unspecified; I10 Essential (primary) hypertension; E78.5 Hyperlipidemia, unspecified; F40.240 Claustrophobia; E66.01 Morbid (severe) obesity due to excess calories; G47.33 Obstructive sleep apnea (adult) (pediatric); M19.90 Unspecified osteoarthritis, unspecified site; Z86.79 Personal history of other diseases of the circulatory system; I48.0 Paroxysmal atrial fibrillation; Z79.82 Long term (current) use of aspirin; Z79.899 Other long term (current) drug therapy; I45.10 Unspecified right bundle-branch block; I44.0 Atrioventricular block, first degree; F32.A Depression, unspecified; Z88.1 Allergy status to other antibiotic agents
CPT/HCPCS: 36415; 70450; 70496; 70498; 80048; 80053; 80061; 82088; 82533; 82550; 82607; 82746; 83036; 83835; 84244; 85025; 85610; 85652; 85730; 86140; 93005; 94760; 96374; 96376; 99285